=== PATIENT | male | born 1975 | race Caucasian/White ===

== ENCOUNTER 2019-06-02 09:46 | Emergency (ER) | payer OTHER, SELFPAY ==
[2019-06-02 09:53] VITALS: BP 145/84; PULSE 60; RESP 14; TEMP 37.2; O2SAT 97; BMI 35.9
--- NOTE | 2019-06-02 09:53 | DI.RAD.S_ITS ---
PROCEDURE: XR WRIST RT MIN 3V INDICATIONS: wrist injury TECHNIQUE: 4 views of the wrist were acquired. COMPARISON: None. FINDINGS: Bones: No fractures or dislocations. No suspicious bony lesions. Mild degenerative changes involving the basal joint of the thumb are present. Ulnar minus variance is incidentally noted. Soft tissues: No suspicious soft tissue calcifications. IMPRESSION: No acute right wrist fractures. Dictated by: Severiano Chappell M.D. on 06/02/2019 at 9:24 Approved by: Severiano Chappell M.D. on 06/02/2019 at 9:25
--- NOTE | 2019-06-02 10:17 | ED.UPPEXIN ---
HPI - Extremity Injury (Upper) General Chief Complaint: Extremity Injury, Upper Stated Complaint: injury to right arm Time Seen by Provider: 06/02/19 10:03 Source: patient Mode of arrival: Ambulatory Limitations: no limitations History of Present Illness HPI narrative: Patient is a 43-year-old male presents with right wrist pain ongoing for last 2 days. He says he was at home is on a step stool when he fell backwards. He said he avoided landing on a dog that was not previously there. He does have some pain with certain movements no numbness or tingling he has been taking ibuprofen and wearing a wrist splint but still heard. complaint: injury to: right and wrist Related Data Home Medications Medication Instructions Recorded Confirmed diclofenac sodium 75 mg PO BID PRN 06/02/19 Allergies Allergy/AdvReac Type Severity Reaction Status Date / Time No Known Drug Allergies Allergy Verified 06/02/19 09:53 Review of Systems Review of Systems Narrative: GENERAL: Denies chills,fever HEENT: Denies throat pain RESPIRATORY: Denies dyspnea, cough, wheezing CARDIOVASCULAR: Denies chest pain, palpitations GASTROINTESTINAL: Denies nausea, vomiting MUSCULOSKELETAL: See HPI SKIN: No rash, no laceration, no pruritus NEUROLOGIC: Denies weakness, dizziness, headache, numbness 8 point review of systems is negative except for those stated above and HPI Patient History Medical History Patient denies medical problems (Acute) Social History Smoking Status: Unknown if ever smoked Smoking Status: Unknown if ever smoked alcohol intake frequency: holidays/special occasions only Substance Use Type: does not use Exam Initial Vital Signs Initial Vital Signs: Vital Signs Temperature 98.9 F 06/02/19 09:53 Pulse Rate 60 06/02/19 09:53 Respiratory Rate 14 06/02/19 09:53 Blood Pressure 145/84 H 06/02/19 09:53 Pulse Oximetry 97 06/02/19 09:53 GENERAL: Well-appearing, well-nourished and in no acute distress. CARDIOVASCULAR: peripheral pulses in tact, cap refill <2 sec RESPIRATORY: No respiratory distress, speaks in full sentences without difficulty EXTREMITIES: Normal range of motion, no clubbing or edema. Neurovascularly intact Right upper extremity no obvious bony deformity distal radial pulse intact. Able to flex and extend at wrist move fingers supinate and pronate normally. No elbow pain shoulder or clavicle deformity NEUROLOGICAL: Cranial nerves II through XII grossly intact. Normal gait and speech. SKIN: Warm, dry, no petechiae, no rashes or lesions. Course Orders Ordered: ED Orders 06/02/19 09:53 XR wrist RT min 3V Stat Vital Signs Vital signs: Vital Signs - 8 hr 06/02/19 09:53 Temperature 98.9 F Pulse Rate 60 Respiratory Rate 14 Blood Pressure 145/84 H Pulse Oximetry 97 MDM - Extremity Injury (Upper) Imaging Data Extremity x-ray #1: Radiologist's Impression: PROCEDURE: XR WRIST RT MIN 3V INDICATIONS: wrist injury TECHNIQUE: 4 views of the wrist were acquired. COMPARISON: None. FINDINGS: Bones: No fractures or dislocations. No suspicious bony lesions. Mild degenerative changes involving the basal joint of the thumb are present. Ulnar minus variance is incidentally noted. Soft tissues: No suspicious soft tissue calcifications. IMPRESSION: No acute right wrist fractures. Dictated by: Severiano Chappell M.D. on 06/02/2019 at 9:24 Approved by: Severiano Chappell M.D. on 06/02/2019 at 9:25 Discharge Plan Departure Patient Disposition: Home Clinical Impression: Sprain and strain of wrist Discharge Date/Time: 06/02/19 10:36 Instructions: DI for Wrist Sprain Activity Restrictions/Additional Instructions: *You have been diagnosed with right wrist sprain *What to do: At this time continue wearing brace as needed. Increase activity as tolerated. If still having pain in 2-3 weeks may require repeat x-ray or EKG possibly outpatient MRI *Continue to take medications as directed Ibuprofen 800 mg every 8 hours if needed for [id number] pain *Follow up with your primary care provider in 2-3 days *Return to ER if you should have increasing numbness tingling worsening pain or any new, worsening or concerning symptoms Prescriptions: No Action diclofenac sodium 75 mg tablet,delayed release (DR/EC) 75 mg PO BID PRN (Reason: pain) RF: 0 Referrals: [facility] [Outside]
== END 2019-06-02 10:36 | disposition home or self-care (01) ==
PROVIDERS: Emergency Provider Emergency Medicine
DX: S63.501A Unspecified sprain of right wrist, initial encounter (principal); S66.911A Strain of unspecified muscle, fascia and tendon at wrist and hand level, right hand, initial encounter; W19.XXXA Unspecified fall, initial encounter
CPT/HCPCS: 73110; 99283